=== PATIENT | female | born 1985 | race Caucasian/White ===

== ENCOUNTER 2017-02-17 05:10 | Emergency (ER) | payer BC, OTHER ==
[~2017-02-17] VITALS: Ht 165.1 cm; Wt 90.2 kg
[2017-02-17 05:14] VITALS: TEMP 36.7; Ht 165.1 cm; Wt 90.2 kg
[2017-02-17] MEDS ORDERED: METOCLOPRAMIDE HCL INJ 5 MG/ML 2 ML VIAL IV STA (05:33)
[2017-02-17] MEDS ORDERED: DiphenhydrAMINE HCL 50 MG/ML VIAL IV STA (05:33)
[2017-02-17] MEDS ORDERED: SODIUM CHLORIDE 0.9% 1000ML 1,000 ML IV STA (05:33)
[2017-02-17] MEDS ORDERED: KETOROLAC TROMETHAMINE 30 MG/ML VIAL IV STA (05:33)
--- NOTE | 2017-02-17 05:50 | EMERGENCY ROOM VISIT NOTE ---
History First contact with patient: 05:18 Chief Complaint: HEAD PAIN Stated Complaint: SEVERE HEAD/NECK PAIN, VOMITING History of Present Illness The patient is a 31 year old female who presents to the Emergency Room with complaints of headache and neck pain. The patient reports that she has had pain in the front of the head and at the base of the head which began yesterday. The patient was seen at [place] emergency department due to left arm and shoulder pain 3 days ago. She had a CT scan of the neck and was told that it was okay. She reports she has bulging disks in the neck and has been seeing her primary care provider regarding this. She was referred to an orthopedic ict security specialist and saw Dr. Gonzalez. The patient reports he is referred her to a agricultural chemicals inspector for her pain. She states that the headache is new and is associated with vomiting. She rates her overall discomfort a 9/10. She does report it is the worst headache of her life. She denies any numbness, weakness, vision changes, slurred speech, confusion or lightheadedness. She denies any recent illnesses or fevers/chills. Review of Systems A complete 10 point review of systems was reviewed with the patient with pertinent positives and negatives as per history of present illness. All else were negative. Social History Smoking Status: Never Smoker Current/Historical Medications No Active Prescriptions or Reported Meds Physical Exam Vital Signs Date Time Temp Pulse Resp B/P (MAP) Pulse Ox O2 Delivery O2 Flow Rate FiO2 02/17/17 06:30 109/59 02/17/17 06:15 69 16 99 02/17/17 06:08 117/44 02/17/17 05:55 60 100 02/17/17 05:40 77 97 02/17/17 05:30 20 143/76 02/17/17 05:25 79 99 Room Air 02/17/17 05:22 115/87 02/17/17 05:14 36.7 80 20 154/89 97 Room Air Physical Exam VITALS: Vitals are noted on the nurse's note and reviewed by myself. Vital signs stable. GENERAL: This is a 31-year-old female, in no acute distress, nondiaphoretic, well-developed well-nourished. HEAD: Normocephalic atraumatic. EARS: External auditory canals clear, tympanic membranes pearly sterling without erythema or effusion bilaterally. EYES: Pupils equal round and reactive to light and accommodation. Conjunctivae without injection, sclerae without icterus. Extraocular movements intact. NOSE: Patent, turbinates without inflammation or discharge. MOUTH: Mucous membranes moist. Tonsils are not enlarged. Pharynx without erythema or exudate. NECK: Supple without nuchal rigidity. No lymphadenopathy. There is vague tenderness of the cervical paraspinous muscles bilaterally. HEART: Regular rate and rhythm without murmurs gallops or rubs. LUNGS: Clear to auscultation bilaterally without wheezes, rales or rhonchi. MUSCULOSKELETAL: Full range of motion throughout. Strength 5/5 throughout. NEURO: Patient was alert and oriented to person place and time. Normal sensation to light and sharp touch. Deep tendon reflexes 2+ throughout. No focal neurological deficits. Medical Decision & Procedures ER Provider Diagnostic Interpretation: CT HEAD WITHOUT CONTRAST (CT) FINDINGS: No intra or extra-axial mass lesions are visualized. There is no CT evidence of acute cortical infarction. There is no evidence of midline shift. There is no acute hemorrhage. No calvarial fractures are visualized. There is no evidence of pathologic ventricular dilatation. There is no evidence of acute sinusitis IMPRESSION: Normal noncontrast head CT. Laboratory Results 02/17/17 05:40 Red Blood Count 4.55, Mean Corpuscular Volume 90.1, Mean Corpuscular Hemoglobin 30.5, Mean Corpuscular Hemoglobin Concent 33.9, Mean Platelet Volume 10.0, Neutrophils (%) (Auto) 65.2, Lymphocytes (%) (Auto) 24.8, Monocytes (%) (Auto) 7.7, Eosinophils (%) (Auto) 1.8, Basophils (%) (Auto) 0.2, Neutrophils # (Auto) 7.83, Lymphocytes # (Auto) 2.97, Monocytes # (Auto) 0.92, Eosinophils # (Auto) 0.22, Basophils # (Auto) 0.02 02/17/17 05:40 Test 02/17/17 05:40 White Blood Count 11.99 K/uL (4.8-10.8) Red Blood Count 4.55 M/uL (4.2-5.4) Hemoglobin 13.9 g/dL (12.0-16.0) Hematocrit 41.0 % (37-47) Mean Corpuscular Volume 90.1 fL (80-100) Mean Corpuscular Hemoglobin 30.5 pg (25-34) Mean Corpuscular Hemoglobin Concent 33.9 g/dl (32-36) Platelet Count 281 K/uL (130-400) Mean Platelet Volume 10.0 fL (7.4-10.4) Neutrophils (%) (Auto) 65.2 % Lymphocytes (%) (Auto) 24.8 % Monocytes (%) (Auto) 7.7 % Eosinophils (%) (Auto) 1.8 % Basophils (%) (Auto) 0.2 % Neutrophils # (Auto) 7.83 K/uL (1.4-6.5) Lymphocytes # (Auto) 2.97 K/uL (1.2-3.4) Monocytes # (Auto) 0.92 K/uL (0.11-0.59) Eosinophils # (Auto) 0.22 K/uL (0-0.5) Basophils # (Auto) 0.02 K/uL (0-0.2) RDW Standard Deviation 41.8 fL (36.4-46.3) RDW Coefficient of Variation 12.8 % (11.5-14.5) Immature Granulocyte % (Auto) 0.3 % Immature Granulocyte # (Auto) 0.03 K/uL (0.00-0.02) Anion Gap 10.0 mmol/L (3-11) Est Creatinine Clear Calc Drug Dose 126.2 ml/min Estimated GFR () 129.0 Estimated GFR (Non- 111.3 BUN/Creatinine Ratio 20.8 (10-20) Calcium Level 8.4 mg/dl (8.5-10.1) Medications Administered Medications (Trade) Dose Ordered Sig/Shoshana Route Start Time Stop Time Status Last Admin Dose Admin Sodium Chloride 1,000 ml @ 999 mls/hr Q1H1M STAT IV 02/17/17 05:33 02/17/17 06:33 DC 02/17/17 05:50 999 MLS/HR Ketorolac Tromethamine (Toradol Inj) 30 mg NOW STAT IV 02/17/17 05:33 02/17/17 05:35 DC 02/17/17 05:52 30 MG Diphenhydramine HCl (Benadryl Inj) 25 mg NOW STAT IV 02/17/17 05:33 02/17/17 05:35 DC 02/17/17 05:50 25 MG Metoclopramide HCl (Reglan Inj) 10 mg NOW STAT IV 02/17/17 05:33 02/17/17 05:35 DC 02/17/17 05:54 10 MG ED Course The patient was evaluated as above. Labs were drawn and IV access was obtained. Patient was medicated with IV fluids, Toradol, Reglan, and Benadryl. CT of the head was performed and read by radiology as above. Patient was reevaluated and states she is feeling much better. Her nausea has resolved and her headache is significantly improved. Findings were discussed with the patient at this time. Discharge instructions were reviewed with the patient. The patient verbalized understanding of my assessment and treatment plan and was discharged home in good condition. Medical Decision The differential diagnosis includes acute intracranial bleed, musculoskeletal, meningitis, encephalitis, mass or mass effect, sinusitis, infection, tumor, headache, temporal arteritis and carbon monoxide exposure, and migraine. The patient is a 31-year-old female who presents today complaining of neck pain and headache. The patient does have reproducible neck pain. She has been following with her primary care provider for cervical disc disease. There is no evidence of meningitis or encephalitis on exam. She is afebrile and nontoxic in appearance. Labs revealed no leukocytosis, anemia or concerning electrolyte abnormalities. CT of the head was performed and was unremarkable. Patient already had a CT of the cervical spine performed at [place] last week. She was treated with the above medications and had significant improvement of her headache. I feel this headache is likely musculoskeletal in nature, as she seems to be describing a tension headache. She was advised to follow-up closely with her primary care provider and return here for any worsening or new/concerning symptoms. The patient's case was reviewed with Dr. Terrazas, ED attending physician, who agreed with my assessment and treatment plan. Based on the patient's presentation and work up, I feel the patient is stable for outpatient treatment. The patient was educated to return to the emergency department for any worsening of their current condition or new/concerning symptoms. She will follow up with her PCP and orthopedic spine. Medication Reconcilliation Current Medication List: was personally reviewed by me Blood Pressure Screening Patient's blood pressure: Normal blood pressure Impression Primary Impression: Headache Additional Impression: Cervical disc disease Departure Information Dispostion Home / Self-Care Condition GOOD Prescriptions No Active Prescriptions or Reported Meds Referrals Aubrey Vaughn D.O. (PCP) Patient Instructions [facility] Additional Instructions You have been treated in the Emergency Department for a Headache. You have received pain medicine in the emergency department which impairs your ability to operate a vehicle. It is illegal for you to drive after receiving these medicines. For pain control, you can use the following [id number] medicines (if >12 yo): - Regular strength (325mg/tab) Tylenol (acetaminophen) 2 tabs every 4-6 hours as needed. Do not exceed 12 tablets in a 24 hour period. Avoid taking more than 4 grams (4000 mg) of Tylenol per day. This includes any other sources of acetaminophen you may take on a regular basis. - Regular strength (200 mg/tab) Advil (ibuprofen) 1-2 tabs every 4-6 hours as needed. Do not exceed a dose of 3200 mg per day. Follow-up with your primary care provider within 48 hours for further evaluation of your headache. Return to the Emergency Department if your current symptoms worsen despite treatment course outlined above, or if you develop any of the following symptoms : intractable pain despite aforementioned treatment course, visual disturbances , loss of vision, unilateral weakness or facial drooping, slurring of speech, loss of coordination, or loss of consciousness. Problem Qualifiers
[2017-02-17 05:52] LABS: BASO % 0.2 %; BASO ABS # 0.02 K/uL (0-0.2); COMPLETE YES; EOS % 1.8 %; IG% 0.3 %; LYMPH % 24.8 %; LYMPH ABS # 2.97 K/uL (1.2-3.4); MEAN CELL VOLUME 90.1 fL (80-100); MEAN CORPUSCULAR HEMOGLOBIN 30.5 pg (25-34); MEAN CORPUSCULAR HGB CONC 33.9 g/dl (32-36); MONO % 7.7 %; NEUT % 65.2 %; PLATELET COUNT 281 K/uL (130-400); RED BLOOD COUNT 4.55 M/uL (4.2-5.4); WHITE BLOOD COUNT 11.99 K/uL (4.8-10.8)
[2017-02-17 06:10] LABS: BUN/CREATININE RATIO 20.8 (10-20); CALCIUM 8.4 mg/dl (8.5-10.1); CREATININE 0.73 mg/dl (0.60-1.20); POTASSIUM 3.7 mmol/L (3.5-5.1)
[2017-02-17 06:15] VITALS: PULSE 69; O2SAT 99
[2017-02-17 06:30] VITALS: BP 109/59
--- NOTE | 2017-02-17 06:32 | DIAGNOSTIC IMAGING REPORT ---
CT HEAD WITHOUT CONTRAST (CT) CLINICAL HISTORY: Head pain. Neck pain. Vomiting. COMPARISON STUDY: No previous studies for comparison. TECHNIQUE: Axial CT of the brain is performed from the vertex to the skull base. IV contrast was not administered for this examination. A dose lowering technique was utilized adhering to the principles of ALARA. CT DOSE: 1139.46 mGy.cm FINDINGS: No intra or extra-axial mass lesions are visualized. There is no CT evidence of acute cortical infarction. There is no evidence of midline shift. There is no acute hemorrhage. No calvarial fractures are visualized. There is no evidence of pathologic ventricular dilatation. There is no evidence of acute sinusitis IMPRESSION: Normal noncontrast head CT. Electronically signed by: Esdras Kim M.D. 02/17/2017 6:31 AM Dictated Date/Time: 02/17/2017 6:30 AM
== END 2017-02-17 06:46 | disposition home or self-care (01) ==
LOC: C.EDB 05:11 → C.EDA 06:46
DX: R51 Headache (principal); M50.30 Other cervical disc degeneration, unspecified cervical region